=== PATIENT | male | born 1965 | race Caucasian/White ===

== ENCOUNTER 2024-06-03 10:23 | Outpatient (AMB) | payer OTHER, SELFPAY ==
--- NOTE | 2024-06-03 10:38 | A.OFFPC_ITS ---
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 Intake Note: New patient visit Allergies No Known Allergies Allergy (Verified 06/03/24 10:38) Tobacco use date assessed: 06/03/24 Dental Screening Dental Screen Date: 06/03/24 Did you have a dental visit in the last 12 months?: No Did you have a dental problem in the last 6 months where you did not have access to dental care?: No Was dental information given to patient?: Patient has dentist HPI HPI Comments History of Present Illness Details This is a 58-year-old male with a past medical history of COPD, hyperlipidemia, hypertension, depression, lung nodules, hepatic steatosis, tobacco use disorder and alcohol use disorder presenting to [facility] care. He transferred from [facility] primary care. His last provider was Dr. Camilo. Lung nodules-last LDCT was in 01/2023. He does not have a casework specialist now. He would like referral back to [facility]. Endorses smoker's cough . No wheezing or shortness of breath. He is not on inhalers for COPD. He will get the influenza vaccine today. He smoked 1 pack per day since age 25 years old. He is still smoking. Per records he had an EGD and colonoscopy in 05/09/2022 at [facility], but I do not have the report or information on when he is due next. Patient thought he did have colon polyps. He denies abdominal pain or bleeding. Patient said he was evaluated by Gastroenterology a year ago for weight loss of 15 lb. Weight is stable since then, and he is hoping to gain back muscle mass, but he is still drinking alcohol. Patient drinks 5 drinks (beer and tequila) five days per week. He went to [facility] rehab a year ago, and he was sober for 40 days. He does want to stop drinking. He does not get withdrawal symptoms. He says he has mild depression, but he declines evaluation for treatment. 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 Patient is treated for hypertension with lisinopril 20 mg daily. He ran out of the medication 3 months ago. His blood pressure is elevated today. Hyperlipidemia is treated with atorvastatin 40 mg daily. Insomnia is treated with trazodone 50 mg nightly. ROS: Constitutional: No unexplained weight loss, fever, chills or night sweats. ENT: No hearing loss, sneezing, congestion, runny nose or sore throat. Respiratory: No hemoptysis, wheezing or shortness of breath. Cardiovascular: No chest pain, chest pressure or chest discomfort. No palpitations or pedal edema. Gastrointestinal: No anorexia, nausea, vomiting or diarrhea. No abdominal pain or blood in stool. Genitourinary: No dysuria, hematuria, urinary frequency. Neurologic: No headache, dizziness, syncope Psychiatric: No SI/HI. Physical exam: Constitutional: Alert, in no distress. Respiratory: Clear to auscultation. Cardiovascular: S1 S2 regular. No murmurs Neurologic: No focal neurological deficits. Psychiatric: Normal mood and affect [facility] Medical History (Updated 06/03/24 @ 11:22 by THEO Niño) Alcohol use disorder Tobacco use disorder COPD (chronic obstructive pulmonary disease) Pure hypercholesterolemia Essential hypertension Major depression Lung nodules Hepatic steatosis Family History (Updated 06/03/24 @ 10:42 by Celsa Diaz CMA) Mother Esophageal cancer Cancer of kidney Social History (Updated 06/03/24 @ 10:45 by Celsa Diaz CMA) Housing: Apartment Alcohol intake: current Patient Tobacco Use Status: Current everyday Tobacco user Cigarette Packs Per Day: 1 Years Smoked: 30 e-Cigarette/Vaping Use: Never Used Second Hand Smoke Exposure: No Substance Use Type: Marijuana service: No Current occupational status: employed 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 1. Little interest or pleasure in doing things: not at all 2. Feeling down, depressed, or hopeless: not at all 3. Trouble falling or staying asleep, or sleeping too much: several days 4. Feeling tired or having little energy: several days 5. Poor appetite or overeating: several days 6. Feeling bad about yourself - or that you are a failure or have let yourself or your family down: several days 7. Trouble concentrating on things, such as reading the newspaper or watching television: not at all 8. Moving or speaking so slowly that other people could have noticed. Or the opposite - being so fidgety or restless that you have been moving around a lot more than usual: not at all 9. Thoughts that you would be better off or of hurting yourself in some way: not at all Total score: 4 Depression Screening Interpretation: Positive Depression Screening Done: Yes 81208 - PHQ-9 Billing: Yes Source: Developed by Drs. Georges Enciso, Kristal Witt, Daryl Mckenna and colleagues, with an educational theron from [employer]. Thrive Questionnaire Date Thrive assessed: 06/03/24 I am a: Patient What is your living situation today?: I have a steady place to live Within the past 12 months, did the food you bought not last and you didn't have the money to get more?: Sometimes True Within the past 12 months, did you worry whether your food would run out before you got money to buy more?: Sometimes True Do you have trouble paying for medicines?: No Do you have trouble getting transportation to medical appointments?: No Do you have trouble paying your heating and electricity bill?: No Do you have trouble taking care of your child, family member or friend?: No Do you have trouble with day-to-day activities such as bathing, preparing meals, shopping, managing finances, etc.?: No Are you currently unemployed and looking for a job?: Yes Are you interested in more education?: Yes Please select the resources that you would like help with: None Currently or been in a relationship where the following occur: I choose not to answer THRIVE Score: 2 AUDIT C Alcohol Use Questionnaire (AUDIT-C) 1. How often do you have a drink containing alcohol?: 2-4 times a month 2. How many drinks containing alcohol do you have on a typical day when you are drinking?: 1 or 2 3. How often do you have six or more drinks on one occasion?: Less than monthly Total Score: 3 ALIRIO-7 AMB Questionnaire ALIRIO-7 Date ALIRIO - 7 assessed: 06/03/24 Feeling nervous, anxious, or on edge: 0 = Not at all Not being able to stop or control worryin = Not at all Worrying too much about different things: 0 = Not at all Trouble relaxin = Several days Being so restless that it is hard to sit still: 0 = Not at all Becoming easily annoyed or irritable: 0 = Not at all Feeling afraid as if something awful might happen: 0 = Not at all Total ALIRIO-7 score (0-4 normal; 5-9 mild; 10-14 moderate; 15-21 severe): 1 Source: Developed by Drs. Georges Enciso, Kristal Witt, Daryl Mckenna and colleagues, with an educational theron from [employer]. ALIRIO-7 Assessment Billing ALIRIO-7 Assessment Tool: ALIRIO-7 Assessment 53086 Physical exam (Primary Care) Vital Signs: Last Vital Signs Pulse 88 06/03/24 10:42 Resp 14 06/03/24 10:42 BP 148/90 H 06/03/24 10:47 Pulse Ox 98 06/03/24 10:42 Oxygen Delivery Method Room Air 06/03/24 10:42 BMI result Body Mass Index 23.3 Tobacco/Smoking Status: Tobacco use Status Tobacco use date assessed 06/03/24 06/03/24 10:49 Patient Tobacco Use Status Current everyday Tobacco 06/03/24 10:49 e-Cigarette/Vaping Use Never Used 06/03/24 10:49 PHQ-9: PHQ-9 Score PHQ-9: Total score 4 06/03/24 10:49 Depression Screening Interpretation: Positive Thrive Assessment: Date of Thrive Assessment Date Thrive assessed 06/03/24 06/03/24 10:49 Currently or been in a relationship where the following occur: I choose not to answer Coding Level of Care Code New Pt Level 4 (63416) Complex EM visit Add On G2211 Diagnoses Alcohol use disorder F10.90 Tobacco use disorder F17.200 COPD (chronic obstructive pulmonary disease) J44.9 Pure hypercholesterolemia E78.00 Lung nodules R91.8 Hepatic steatosis K76.0 Major depression F32.9 Essential hypertension I10 Additional Codes ALIRIO-7 Assessment Billing - ALIRIO-7 Assessment Tool: ALIRIO-7 Assessment 88484 ([id number]) PHQ-9 - 45192 - PHQ-9 Billing: Yes ([id number]) Assessment & Plan Assessment & Plan (1) Alcohol use disorder: Code(s): F10.90 - Alcohol use, unspecified, uncomplicated Category: Medical Plan: We discussed the risks of alcohol use disorder. He wants to stop drinking again. He declined formal referral to addiction Medicine, but he did take the information from the website and has the contact number. (2) Tobacco use disorder: Code(s): F17.200 - Nicotine dependence, unspecified, uncomplicated Category: Medical Plan: Strongly recommended smoking cessation. Patient said he already tried Chantix in the patches. He wants to try to quit cold turkey. (3) COPD (chronic obstructive pulmonary disease): Code(s): J44.9 - Chronic obstructive pulmonary disease, unspecified Category: Medical Plan: Refer to pulmonology for evaluation. (4) Pure hypercholesterolemia: Code(s): E78.00 - Pure hypercholesterolemia, unspecified Category: Medical Plan: Restart atorvastatin. Check lipid profile. (5) Lung nodules: Code(s): R91.8 - Other nonspecific abnormal finding of lung field Category: Medical Plan: Refer to [facility] pulmonology for management/LDCT. (6) Hepatic steatosis: Code(s): K76.0 - Fatty (change of) liver, not elsewhere classified Category: Medical Plan: Recommended low-cholesterol diet. Alcohol use discussed above. Check LFTs and then consider liver ultrasound with elastography. (7) Major depression: Code(s): F32.9 - Major depressive disorder, single episode, unspecified Category: Medical Plan: Declines referral/intervention. We will continue trazodone for insomnia. (8) Essential hypertension: Code(s): I10 - Essential (primary) hypertension Category: Medical Plan: Restart lisinopril. Recommended low-sodium diet and avoidance of caffeine. Alcohol use is contributing to this. Plan Return in 2 months for complete physical exam. Orders: Orders Comprehensive Met. Panel Today E78.00 - Pure hypercholesterolemia, unspecified, I10 - Essential (primary) hypertension, K76.0 - Fatty (change of) liver, not elsewhere classified Lipid Panel Today E78.00 - Pure hypercholesterolemia, unspecified, E78.5 - Hyperlipidemia, unspecified, I10 - Essential (primary) hypertension, K76.0 - Fatty (change of) liver, not elsewhere classified TSH reflex Free T4 Today E78.00 - Pure hypercholesterolemia, unspecified, I10 - Essential (primary) hypertension, K76.0 - Fatty (change of) liver, not elsewhere classified Prostate Specific Antigen Today E78.00 - Pure hypercholesterolemia, unspecified, I10 - Essential (primary) hypertension, K76.0 - Fatty (change of) liver, not elsewhere classified, Z12.5 - Encounter for screening for malignant neoplasm of prostate UA w Microscopic Today R39.9 - Unspecified symptoms and signs involving the genitourinary system Complete Blood Count no Diff Today E78.00 - Pure hypercholesterolemia, unspecified, I10 - Essential (primary) hypertension, K76.0 - Fatty (change of) liver, not elsewhere classified Influenza [id number] Immunization Today Z23 - Encounter for immunization Referrals Pulmonology Referral F17.200 - Nicotine dependence, unspecified, uncomplicated, J44.9 - Chronic obstructive pulmonary disease, unspecified, R91.8 - Other nonspecific abnormal finding of lung field Medications: New atorvastatin 40 mg PO DAILY 90 tabs 3RF trazodone 50 mg PO BEDTIME 90 tabs 3RF Fluarix Triv [id number] (PF) (flu vacc [id number] 6mos up(PF)) 0.5 mL IM ONCE 0.5 mL 0RF NS Z23 - Encounter for immunization lisinopril 20 mg PO DAILY 90 tabs 3RF Patient Instructions: [email or web address] [address] [place] [address], [address] [place] [address]
[2024-06-03 10:42] VITALS: BP 160/98; PULSE 88; RESP 14; O2SAT 98; BMI 23.3
[2024-06-03 10:47] VITALS: BP 148/90
== END 2024-06-03 11:27 | disposition home or self-care (01) ==
PROVIDERS: PCP Physician Assistant Medical; Visit Provider Physician Assistant Medical
DX: F10.90 Alcohol use, unspecified, uncomplicated (principal); F17.200 Nicotine dependence, unspecified, uncomplicated; J44.9 Chronic obstructive pulmonary disease, unspecified; E78.00 Pure hypercholesterolemia, unspecified; R91.8 Other nonspecific abnormal finding of lung field; K76.0 Fatty (change of) liver, not elsewhere classified; F32.9 Major depressive disorder, single episode, unspecified; I10 Essential (primary) hypertension; Z23 Encounter for immunization

== ENCOUNTER → 2024-06-03 10:23 | Outpatient (BNVA) | payer OTHER, SELFPAY | PROVIDERS: PCP Physician Assistant Medical; Visit Provider Physician Assistant Medical | DX: J44.9 Chronic obstructive pulmonary disease, unspecified (principal); E78.00 Pure hypercholesterolemia, unspecified; R91.8 Other nonspecific abnormal finding of lung field; K76.0 Fatty (change of) liver, not elsewhere classified; F32.9 Major depressive disorder, single episode, unspecified; I10 Essential (primary) hypertension; F10.90 Alcohol use, unspecified, uncomplicated; F17.200 Nicotine dependence, unspecified, uncomplicated; Z23 Encounter for immunization | CPT/HCPCS: 90471; 90656; 96127 ==

== ENCOUNTER → 2024-08-12 08:28 | Outpatient (BNVA) | payer OTHER, SELFPAY | PROVIDERS: PCP Physician Assistant Medical; Visit Provider Physician Assistant Medical | DX: Z00.00 Encounter for general adult medical examination without abnormal findings (principal); Z23 Encounter for immunization; E78.00 Pure hypercholesterolemia, unspecified; I10 Essential (primary) hypertension; G47.00 Insomnia, unspecified; J44.9 Chronic obstructive pulmonary disease, unspecified; F10.90 Alcohol use, unspecified, uncomplicated; F32.9 Major depressive disorder, single episode, unspecified; R91.8 Other nonspecific abnormal finding of lung field; K76.0 Fatty (change of) liver, not elsewhere classified; M25.512 Pain in left shoulder; F17.200 Nicotine dependence, unspecified, uncomplicated; Z86.0100 Personal history of colon polyps, unspecified; Z79.899 Other long term (current) drug therapy | CPT/HCPCS: 90471; 90715; 96127 ==